=== PATIENT | female | born 1985 | race Hispanic/Latino ===

== ENCOUNTER 2018-09-14 21:28 | Emergency (ER) | payer OTHER ==
[2018-09-14] MEDS ORDERED: Acetaminophen 325 MG TAB ONE ×2 (22:04)
== END 2018-09-14 23:24 | disposition home or self-care (01) ==
LOC: ERS 21:28
DX: O99.89 Other specified diseases and conditions complicating pregnancy, childbirth and the puerperium (principal); R10.9 Unspecified abdominal pain; Z3A.22 22 weeks gestation of pregnancy; V43.62XA Car passenger injured in collision with other type car in traffic accident, initial encounter

== ENCOUNTER 2018-09-16 06:50 | Outpatient (CLI) | payer OTHER ==
--- NOTE | 2018-09-16 09:04 | ULT ---
OB ULTRASOUND: HISTORY: anatomy. FINDINGS: A single live intrauterine gestation is seen with measurements corresponding to an estimated gestatio nal age of 20 weeks 3 days and MARYJO at 01/31/2019. The estimated weight measures 320 gm or 11 oz. measurements are as follows: BPD 4.95 cm, 21 weeks 0 days HC 18.81 cm, 21 weeks 1 day AC 14.91 cm, 20 weeks 2 days FL 2.99 cm, 19 weeks 2 days heart rate measures 138 b.p.m. LEROY measures 13.37 cm. Placenta is posteriorly located without evidence of placenta previa. A 3-vessel cord, cord insertion, kidneys, bladder, stomach, 4-chamber heart, lateral ventricles , cerebellum, spine, lips/nose, upper and lower extremities are visualized. No definite anomal ies are seen. IMPRESSION: Single live intrauterine of 20 weeks 3 days, estimated gestational age and estimated date o f delivery at 01/31/2019. POS: ALEXIS
== END 2018-09-16 06:51 | disposition home or self-care (01) ==
LOC: BICULT 06:50
PROVIDERS: ATTEND Family Medicine
DX: O09.92 Supervision of high risk pregnancy, unspecified, second trimester (principal); Z3A.20 20 weeks gestation of pregnancy
CPT/HCPCS: 76805

== ENCOUNTER 2018-10-27 07:20 | Outpatient (CLI) | payer OTHER | END 2018-10-27 07:21 | disposition home or self-care (01) | LOC: BICULT 07:20 | PROVIDERS: ATTEND Family Medicine | DX: O36.5930 Maternal care for other known or suspected poor fetal growth, third trimester, not applicable or unspecified (principal) | CPT/HCPCS: 76700; 76816 ==

== ENCOUNTER 2019-01-10 10:19 | Inpatient (IN) | payer MEDICAID, SELFPAY ==
[2019-01-10] MEDS ORDERED: Ondansetron PF 4 MG/2 ML Vial IVP PRN ×3 (10:50→14:37)
[2019-01-10] MEDS ORDERED: Bicitra 30 ML UDCUP PO SCH (10:50)
[2019-01-10] MEDS ORDERED: Lactated Ringer's 1,000 ML IV SCH (10:50)
[2019-01-10] MEDS ORDERED: Butorphanol Tartrate 1 MG/ML VIAL SLOW IVP PRN (10:50)
[2019-01-10] MEDS ORDERED: CEFAZOLIN 2 GM in Premix Bag 1 BAG IVPB SCH (10:50)
[2019-01-10] MEDS ORDERED: Promethazine HCl 25 MG/ML VIAL IM PRN ×3 (10:50→14:37)
[2019-01-10 10:56] VITALS: BMI 23.6
[2019-01-10 11:06] LABS: Hemoglobin 12.8 g/dL (12.0-16.0); Mean Corpuscular HGB CONC 34.9 g/dL (32.0-36.0); Mean Corpuscular Hemoglobin 32.1 pg (27.0-31.0); Mean Platelet Volume 9.3 fL (7.4-10.4); Platelet Count 168 thou/uL (130-400); RBC Distribution Width 12.1 % (11.5-14.5); Red Blood Cell (RBC) Count 3.98 mill/uL (4.20-5.40); White Blood Cell (WBC) Count 9.2 thou/uL (4.8-10.8)
[2019-01-10] MEDS ORDERED: Naloxone HCl 0.4 mg/ml Vial IV PRN (11:35)
[2019-01-10] MEDS ORDERED: Promethazine HCl 25 MG SUPP PR PRN (11:35)
[2019-01-10] MEDS ORDERED: Meperidine HCl/PF 25 MG/ML VIAL SLOW IVP PRN (11:35)
[2019-01-10] MEDS ORDERED: Naloxone HCl 0.4 mg/ml Vial IVP PRN ×2 (11:35)
[2019-01-10] MEDS ORDERED: Ondansetron HCl/PF 4 MG/2 ML Vial IVP PRN (11:35)
[2019-01-10] MEDS ORDERED: L&D-Morphine 4 MG/ML VIAL SLOW IVP PRN (11:35)
[2019-01-10] MEDS ORDERED: Ketorolac Tromethamine 30 MG/ML VIAL IVP PRN (11:35)
[2019-01-10] MEDS ORDERED: HYDROmorphone 2 MG/ML VIAL SLOW IVP PRN (11:35)
[2019-01-10] MEDS ORDERED: diphenhydrAMINE 50 MG/ML VIAL IVP PRN (11:35)
[2019-01-10 11:45] LABS: HBSAg Index 0.75 S/CO (0-0.99); Hep B Surf Ag Non-Reactive S/CO (NonReactive); Syphilis Antibody Nonreactive (Nonreactive); Syphilis Antibody Index 0.04 S/CO (<1.00 Non-Reactive)
[2019-01-10] MEDS ORDERED: Communication Order-Pharmacy FS SCH (11:45)
[2019-01-10] MEDS ORDERED: Ketorolac Tromethamine 30 MG/ML VIAL IVP SCH (11:45)
[2019-01-10] MEDS ORDERED: diphenhydrAMINE 50 MG/ML VIAL ONE (11:55)
[2019-01-10] MEDS ORDERED: Promethazine HCl 25 MG/ML VIAL ONE (11:55)
[2019-01-10] MEDS ORDERED: Oxytocin 10 UNITS/ML VIAL ONE (11:55)
[2019-01-10] MEDS ORDERED: Dexamethasone 4 mg/ml Vial ONE (11:55)
[2019-01-10] MEDS ORDERED: MORPHINE 5 MG/10 ML PF VIAL ONE (11:55)
[2019-01-10] MEDS ORDERED: Ondansetron PF 4 MG/2 ML Vial ONE (11:55)
[2019-01-10] MEDS ORDERED: Metoclopramide HCl 10 MG/2 ML VIAL ONE (11:55)
[2019-01-10] MEDS ORDERED: ePHEDrine/0.9% NaCl/PF SYRINGE 50 mg/10 ml ONE (11:56)
[2019-01-10] MEDS ORDERED: Ketorolac Tromethamine 30 MG/ML VIAL ONE (11:56)
--- NOTE | 2019-01-10 13:12 | PDOC.OPDEL ---
OB Operative/Delivery Note Delivery Dr/Surgeon: Dr. Adame Assist: Dr. Green Pre-Delivery Diagnosis: scheduled section Procedure/Post Delivery Dx: repeat low transverse CS Weeks gestation: 39 Anesthesia: spinal - Findings A Sex: female - Additional Findings/Plan Placenta delivered: manual removal findings: low transverse hysterotomy without extension Estimated blood loss: 600 mL Compilations/Other Findings: Preoperative Diagnosis: 1)Term intrauterine 2)Previous Postoperative Diagnosis: 1)Term intrauterine , delivered 2)Previous Anesthesia: spinal Indications: The patient is a 33 year old female at 39.0 weeks gestation who presents for a repeat scheduled . Procedure in Detail: After risks, benefits, and alternatives were explained to the patient, she gave informed consent. Pre-operative antibiotics included Cefazolin 2 gram IV. The patient was taken to the operating room and spinal anesthesia was initiated. She was placed in the supine position with a left tilt and prepped and draped in usual sterile fashion. A Pfannenstiel incision was made with a scalpel and carried down to the level of the fascia which was sharply nicked. The fascial cut was extended bilaterally with Avendano scissors. The inferior and superior edges of the cut fascial edges were elevated with Jovita clamps and the underlying rectus muscles were sharply and bluntly dissected free. The recti were divided digitally and retracted manually. The peritoneum was entered bluntly and retracted manually. Uterine adhesions were sharply dissected free with Metzenbaum scissors. Bladder blade was placed. A low transverse score was made with the scalpel and the uterus was entered in the midline bluntly. Clear fluid was seen. The hysterotomy was extended manually. The was noted to be vertex and was easily delivered by fundal pressure. Mouth and nares were bulb suctioned. Cord clamped and cut and grossly normal female was handed to waiting nurse. Cord blood was obtained. Placenta was manually extracted, found to be intact with 3 vessel cord and discarded. The uterus was externalized and the endometrium was curetted with a dry lap. The bladder blade was replaced and the uterus was closed with a running locking 0-Vicryl followed by a few figure of eight sutures with 0-Vicryl. Following this hemostasis was noted. The abdomen was irrigated with saline and suctioned free of clots. Seprafilm was placed over anterior aspect of uterus. The uterus was internalized and the hysterotomy was again noted to be hemostatic. The rectus muscles were found to have a few bleeders that were cauterized with the bovie. There was still some oozing, so surgiseal was placed on the bleeding areas of the rectus. The fascia was closed with a running non-locking 0-PDS suture. The subcutaneous tissue was irrigated and there were no bleeders. The subcutaneous tissue was closed with interrupted 3-0 Vicryl. The skin was approximated with gael and a pressure dressing was placed. All counts were correct. The patient tolerated the procedure well and was taken to the recovery room in stable condition. Time of Delivery: 1227 on 01/10/19 Estimated Blood Loss: 600 ml Complications: None Specimens: Cord blood sent to lab for blood type Findings: Grossly normal vigorous female . Grossly normal placenta with 3 vessel cord discarded. Drains: Lopez to gravity draining clear urine Post delivery plan: routine recovery
[2019-01-10] MEDS ORDERED: NS / Oxytocin 40 units/1000ml 1,000 ML IV SCH (14:37)
[2019-01-10] MEDS ORDERED: HYDROcodone/Acetaminophen 5/325 mg Tablet PO PRN (14:37)
[2019-01-10] MEDS ORDERED: diphenhydrAMINE 25 MG CAP PO PRN (14:37)
[2019-01-10] MEDS ORDERED: Bisacodyl 10 MG SUPP PR PRN (14:37)
[2019-01-10] MEDS ORDERED: Lanolin Ointment 7 GM TUBE TOP PRN (14:37)
[2019-01-10] MEDS ORDERED: Meperidine HCl/PF 25 MG/ML VIAL IM PRN (14:37)
[2019-01-10] MEDS: Ketorolac Tromethamine 30 MG/ML VIAL IVP SCH (17:45)
[2019-01-10] MEDS: Ferrous Sulfate 325 MG TAB PO SCH (21:53)
[2019-01-10] MEDS: Docusate Calcium (SURFAK) 240 MG CAP PO SCH (21:53)
[2019-01-11] MEDS: Ketorolac Tromethamine 30 MG/ML VIAL IVP SCH ×2 (00:15→05:29)
[2019-01-11] MEDS ORDERED: Sodium Chloride 0.9% 10 ML ONE ×2 (05:27→05:37)
[2019-01-11 06:29] LABS: Hemoglobin 11.5 g/dL (12.0-16.0); Mean Corpuscular HGB CONC 33.6 g/dL (32.0-36.0); Mean Corpuscular Hemoglobin 31.2 pg (27.0-31.0); Mean Corpuscular Volume 92.9 fL (78.0-98.0); Mean Platelet Volume 9.2 fL (7.4-10.4); Platelet Count 165 thou/uL (130-400); RBC Distribution Width 12.1 % (11.5-14.5); Red Blood Cell (RBC) Count 3.68 mill/uL (4.20-5.40); White Blood Cell (WBC) Count 10.4 thou/uL (4.8-10.8)
[2019-01-11] MEDS: Ferrous Sulfate 325 MG TAB PO SCH ×2 (07:32→22:07)
[2019-01-11] MEDS: Simethicone Chewable 80 MG TAB PO PRN ×2 (09:24→22:07)
[2019-01-11] MEDS: Docusate Calcium (SURFAK) 240 MG CAP PO SCH ×2 (09:24→22:07)
[2019-01-11] MEDS: Prenatal Vitamin 1 TAB PO SCH (09:24)
[2019-01-11] MEDS: Ibuprofen 800 MG TAB PO SCH ×2 (14:13→22:07)
[2019-01-12] MEDS: Ibuprofen 800 MG TAB PO SCH ×3 (05:18→21:31)
[2019-01-12] MEDS: Docusate Calcium (SURFAK) 240 MG CAP PO SCH ×2 (08:01→21:31)
[2019-01-12] MEDS: HYDROcodone/Acetaminophen 5/325 mg Tablet PO PRN ×2 (08:01→12:43)
[2019-01-12] MEDS: Prenatal Vitamin 1 TAB PO SCH (08:01)
[2019-01-12] MEDS: Ferrous Sulfate 325 MG TAB PO SCH ×2 (08:04→21:32)
[2019-01-13] MEDS: Ibuprofen 800 MG TAB PO SCH (05:58)
[2019-01-13 08:14] VITALS: BP 91/54; TEMP 98.4
[2019-01-13] MEDS: Docusate Calcium (SURFAK) 240 MG CAP PO SCH (08:37)
[2019-01-13] MEDS: Prenatal Vitamin 1 TAB PO SCH (08:37)
[2019-01-13] MEDS: Ferrous Sulfate 325 MG TAB PO SCH (08:37)
== END 2019-01-13 11:45 | disposition home or self-care (01) | DRG 788 ==
LOC: L&D-LIB 10:19 → L&D 11:14 → 3SW 14:43
PROVIDERS: ADMIT Family Medicine; ATTEND Family Medicine
PROC: 10D00Z1 Extraction of Products of Conception, Low, Open Approach (ICD-10-PCS; principal; 2019-01-10)
DX: O34.211 Maternal care for low transverse scar from previous cesarean delivery (principal); Z3A.39 39 weeks gestation of pregnancy; Z37.0 Single live birth
CPT/HCPCS: 36415; 51702; 85027; 86780; 86850; 86900; 86901; 87340; J0690; J1100; J1200; J1885; J2270; J2405; J2550; J2590; J2765

== ENCOUNTER 2022-05-26 19:36 | Emergency (ER) | payer MEDICAID, SELFPAY ==
[~2022-05-26 19:36] MED LIST: Iopamidol-370 76% 500 ML 1 ML ONE
[2022-05-26 20:22] LABS: #Eosinphils 0.1 thou/uL (0.0-0.7); #Lymphocytes 1.9 thou/uL (1.20-3.40); #Monocytes 0.4 thou/uL (0.11-0.59); #Neutrophils 4.2 thou/uL (1.40-6.50); %Basophils 0.1 % (0.0-1.0); %Eosinophils 0.8 % (0.0-10.0); %Lymphocytes 29.5 % (21.0-51.0); %Neutrophils 63.6 % (42.0-75.0); Hemoglobin 10.5 g/dL (12.0-16.0); Mean Corpuscular HGB CONC 31.3 g/dL (32.0-36.0); Mean Corpuscular Hemoglobin 25.7 pg (27.0-31.0); Mean Corpuscular Volume 82.2 fl (78.0-98.0); Mean Platelet Volume 8.9 fL (7.4-10.4); Platelet Count 246 thou/uL (130-400); Red Blood Cell (RBC) Count 4.08 mill/uL (4.20-5.40); White Blood Cell (WBC) Count 6.6 thou/uL (4.8-10.8)
[2022-05-26 20:30] LABS: BHCG - Serum Negative (NEGATIVE); Pregs Control Background? CLEAR/WHITE (CLR/WHITE); Pregs Control Bar Appear? YES (CONTROL BAR)
[2022-05-26 20:44] LABS: ALT (SGPT) 16 U/L (8-55); AST (SGOT) 16 U/L (5-34); Albumin 4.4 g/dL (3.5-5.0); Alkaline Phosphatase 49 U/L (40-110); Anion Gap 12 mmol/L (10-20); BUN (Urea Nitrogen) 9 mg/dL (7.0-18.7); Bilirubin, Total 0.2 mg/dL (0.2-1.2); Calc. Creatinine Clearance 0 mL/min (70-130); Calcium 9.3 mg/dL (7.8-10.44); Carbon Dioxide 25 mmol/L (22-29); Chloride 107 mmol/L (98-107); Estimated GFR 101; Globulin 2.9 g/dL (2.4-3.5); Glucose 111 mg/dL (70-105); Potassium 3.8 mmol/L (3.5-5.1); Protein, Total 7.3 g/dL (6.0-8.3); Sodium 140 mmol/L (136-145)
[2022-05-26 21:53] LABS: Bilirubin Negative (Negative); Blood, Urine Negative (Negative); Clarity Clear (Clear); Glucose, Urine (Dipstick) Normal (Negative); Ketone, Urine Trace mg/dL (Negative); Leukocyte Negative Leu/uL (Negative); Nitrite Negative (Negative); Protein, Urine (Dipstick) Negative (Neg-Trace); Specific Gravity, Urine 1.015 (1.002-1.036); Urobilinogen Normal mg/dL (Less than 2); pH, Urine 6.5 (5.0-9.0)
[2022-05-27 11:04] LABS: Chlamydia by PCR Not Detected (NotDetected); GC by PCR Not Detected (NotDetected)
== END 2022-05-27 05:22 | disposition short-term general hospital (02) ==
LOC: ERS 19:36
DX: R10.2 Pelvic and perineal pain (principal); R10.30 Lower abdominal pain, unspecified
CPT/HCPCS: 36415; 74177; 80053; 81003; 84703; 85025; 87480; 87491; 87510; 87591; 87660; Q9967